=== PATIENT | male | born 1960 | race African-American/Black ===

== ENCOUNTER 2021-04-03 08:29 | Emergency (ER) | payer MEDICAID ==
[~2021-04-03] VITALS: Ht 180.3 cm; Wt 117.9 kg
[2021-04-03 08:32] VITALS: BP 114/67
--- NOTE | 2021-04-03 08:36 | NUR ---
PT AMBULATED TO BED 7
--- NOTE | 2021-04-03 08:58 | NUR ---
UA COLLECTED BEDSIDE AND HANDED TO SEWAGE DISPOSAL WORKER
--- NOTE | 2021-04-03 09:01 | NUR ---
DR RENDON AT BEDSIDE EVALUATING PT
--- NOTE | 2021-04-03 09:05 | NUR ---
LAB BEDSIDE COLLECTING BLOOD WORK
--- NOTE | 2021-04-03 09:09 | NUR ---
60 Y/O TRANSIENT MALE BIBA FROM [facility] C/O 06/02 FULL BODY PAIN. PT ALSO ADMITS TO SI/HI. PT HAS A PLAN TO SHOOT HIMSELF AND STATES HE DOES NOT HAVE A GUN BUT STATES "THAT HE THINKS HE CAN GAIN ACCESS TO A GUN." PT ADMITS THAT HE WANTS TO AND KILL HIMSELF. PT ADMITS TO METH USE LAST NIGHT AND ALCOHOL USE X1 WEEK AGO PMH:DENIES NKDA
[2021-04-03 09:29] LABS: APPEARANCE,URINE CLEAR (CLEAR); BILIRUBIN,URINE NEGATIVE (NEGATIVE); BLOOD, URINE NEGATIVE (NEGATIVE); COLOR,URINE YELLOW (YELLOW); LEUKOCYTE ESTERASE ,URINE NEGATIVE (NEGATIVE); NITRITE, URINE NEGATIVE (NEGATIVE); PH,URINE 5.5 (5.0-9.0); UGLUCOSE NEGATIVE (NEGATIVE)
[2021-04-03 09:34] LABS: BASOPHILS # (AUTO) 0.1 K/uL (0.00-0.22); BASOPHILS % (AUTO) 1.1 % (0.0-2.0); EOSINOPHILS # (AUTO) 0.3 K/uL (0-0.4); EOSINOPHILS % (AUTO) 5.2 % (0.0-4.0); HEMATOCRIT 35.1 % (36-52); HEMOGLOBIN 11.3 g/dL (12.0-18.0); LYMPHOCYTES # (AUTO) 1.7 K/uL (2.0-11.5); LYMPHOCYTES % (AUTO) 31.4 % (20.5-51.1); MEAN CORPUSCULAR HEMOGLOBIN 23 pg (27-31); MEAN CORPUSCULAR HGB CONC 32 g/dL (33-37); MEAN CORPUSCULAR VOLUME 70.3 fL (80-94); MONOCYTES # (AUTO) 0.3 K/uL (0.8-1.0); NEUTROPHILS % (AUTO) 56.3 % (42.2-75.2); PLATELET COUNT (AUTO) 356 K/uL (140-450); RED CELL DISTRIBUTION WIDTH 20.2 % (11.6-13.7); WHITE BLOOD COUNT (AUTO) 5.3 K/uL (4.8-10.8)
[2021-04-03 09:51] LABS: BARBITURATE, URINE NEGATIVE ng/ml (NEG <=200); BENZODIAZEPINE, URINE NEGATIVE ng/mL (NEG <=200); CANNABINOID, URINE NEGATIVE ng/mL (NEG <=50); COCAINE, URINE NEGATIVE ng/mL (NEG <=300); OPIATE, URINE NEGATIVE ng/mL (NEG <=2000); PHENCYCLIDINE SCREEN,URINE NEGATIVE ng/mL (NEG <=25)
[2021-04-03 09:51] LABS: ACETAMINOPHEN < 0.5 ug/ml (10-30); SALICYLATE < 2.8 mg/dL (2.8-20.0)
[2021-04-03 09:54] LABS: ALBUMIN 3.3 g/dL (3.4-5.0); CARBON DIOXIDE 25.7 mmol/L (21-32); CREATININE 1.1 mg/dL (0.6-1.3); POTASSIUM 3.7 mmol/L (3.5-5.1); TOTAL BILIRUBIN 0.2 mg/dL (0.0-1.0)
--- NOTE | 2021-04-03 11:06 | NUR ---
PT CURRENTLY SLEEPING WITH EYES CLOSED ON HIS SIDE BEDSIDE. SIDERAIL X2 UP AND BED IN LOWEST POSITION. VITAL SIGNS CURRENTLY STABLE. WILL CONTINUE TO MONITOR PT
--- NOTE | 2021-04-03 13:10 | NUR ---
PT CURRENTLY SLEEPING BEDSIDE WITH EYES CLOSED. EQUAL CHEST RISE AND FALL NOTED AND VITAL SIGNS STABLE. BED IN LOWEST POSITION WITH SIDERAIL X2 UP. LIGHTS CURRENTLY OFF IN ROOM. WILL CONTINUE TO MONITOR
--- NOTE | 2021-04-03 13:34 | NUR ---
SPOKE WITH DR. GARCIA FROM [facility]. PROVIDED REPORT ON PT AND REASON FOR PSY CONSULT. PT CURRENTLY ON TELE-PSY CONSULT WITH
--- NOTE | 2021-04-03 14:18 | NUR ---
POLICE BEDSIDE SPEAKING WITH PT
--- NOTE | 2021-04-03 14:25 | NUR ---
PT HAS BEEN PLACED ON 5150 HOLD BY [place] [employer]. 5150 DUE TO PATIENT BEING SUCIDIAL
--- NOTE | 2021-04-03 14:32 | NUR ---
PT PROVIDED WITH JUICE AND SANDWHICH BEDSIDE
--- NOTE | 2021-04-03 14:39 | NUR ---
SUCIDIDE SEVERITY SCALE RATING COMPLETED BEDSIDE WITH PT
--- NOTE | 2021-04-03 14:47 | NUR ---
COVJOSEPHINE HEIDI AND NOVEL SWAB TAKEN BEDSIDE AND WALKED OVER TO LAB
[2021-04-03] MEDS ORDERED: traZODone 50 MG TAB PO PRN (14:50)
[2021-04-03] MEDS ORDERED: ARIPiprazole 10 MG TAB PO SCH (17:00)
--- NOTE | 2021-04-03 17:22 | NUR ---
PT CURRENTLY SLEEPING ON SIDE IN ROOM WITH EYES CLOSED. EQUAL CHEST RISE AND FALL NOTED. BED IN LOWEST POSITION WITH SIDERAIL X2 UP. VITAL SIGNS STABLE. WILL CONTINUE TO MONITOR
--- NOTE | 2021-04-03 17:38 | NUR ---
Fax packet to the following facilities [facility]
--- NOTE | 2021-04-03 19:16 | NUR ---
Pt report given to ABDELRAHMAN CROW. Transfer of care at this time.
--- NOTE | 2021-04-03 21:00 | NUR ---
PT. ASKING FOR "SOMETHING TO DRINK." GIVEN APPLE AND ORANGE JUICES TO DRINK.
[2021-04-03] MEDS: busPIRone 5 MG TAB PO SCH (21:12)
--- NOTE | 2021-04-03 22:55 | NUR ---
PT. LAYING COMFORTABLY IN SUPINE POSITION WITH EYES CLOSED. AUDIBLE SNORING SOUNDS HEARD. VOICES NO COMPLAINTS AT THIS TIME.
--- NOTE | 2021-04-04 00:32 | NUR ---
PT. RESTING WITH EYES CLOSED, IN SUPINE POSITION. VOICES NO COMPLAINTS AT THIS TIME.
--- NOTE | 2021-04-04 02:49 | NUR ---
PT. IN POSITION, RESTING WITH EYES CLOSED. HR EVEN AND REGULAR. BREATHING UNLABORED. NO DISTRESS NOTED.
--- NOTE | 2021-04-04 06:45 | NUR ---
PT. RESTING WITH EYES CLOSED, VOICES NO COMPLAINTS. NO DISTRESS NOTED.
--- NOTE | 2021-04-04 07:05 | NUR ---
GIVEN REPORT TO ABDELRAHMAN PARKER. TRANSFER OF CARE AT THIS TIME.
--- NOTE | 2021-04-04 07:24 | NUR ---
PATIENT RESTING IN BED WITH EYES CLOSED, RESP EVEN AND UNLABORED
[2021-04-04] MEDS ORDERED: SERTRALINE 50 MG TAB PO SCH (09:00)
[2021-04-04] MEDS: busPIRone 5 MG TAB PO SCH (09:10)
--- NOTE | 2021-04-04 09:57 | NUR ---
PT AWAKENED FOR NURSE TO TAKE VITALS AND FELL ASLEEP IMMEDIATELY AFTERWARD
--- NOTE | 2021-04-04 11:31 | NUR ---
CALLED REPORT TO DEZ QUICK AT [facility] IN [place], FULL REPORT GIVEN
--- NOTE | 2021-04-04 11:54 | NUR ---
[facility] ARRIVED TO TRANSPORT PATIENT TO FACILITY
[2021-04-04 11:59] VITALS: BP 121/82
--- NOTE | 2021-04-04 12:00 | NUR ---
Patient to be transferred to [facility]. Is being transferred due to [facility]. Receiving facility has accepting physician and available space. ER physician has signed transfer form. Patient or responsible republican has agreed to transfer and signed form. Patient belongings inventoried and will be sent with patient. Copy of nursing notes, lab reports, EKG, Physicians Orders and X-rays to be sent with patient. Report called to [facility] at receiving facility.
== END 2021-04-04 11:58 ==
LOC: MED 08:29
DX: R45.851 Suicidal ideations (principal); Z20.822 Contact with and (suspected) exposure to COVID-19; M79.10 Myalgia, unspecified site
CPT/HCPCS: 36415; 80053; 80305; 81003; 83690; 85025; 87426; 93005; 99284; G0480; G0482; U0003